=== PATIENT | male | born 1935 | race Two or more races ===

== ENCOUNTER → 2018-06-20 | Outpatient (CLI) | payer OTHER ==
[~2018-06-20] MED LIST: AMLO5TAB10 PO; ASPI81TA50 PO; FISH1CAP PO; HYDR-3164 PO; IOHEXOL 240 MG/ML 50ML VIAL. PO ONE; LISI10TA2 PO; METO-247 PO; MULT-658 PO; NIAC500T PO; SIMV40TA3 PO
--- NOTE | 2018-06-20 14:51 | RAD ---
CT study of the abdomen and pelvis without IV contrast Clinical indications: Prostate cancer. TECHNIQUE: Due to a low GFR, no IV contrast was given. This may decrease the sensitivity to detect organ pathology. GI contrast was administered per mouth. Helical CT scanning of the abdomen and pelvis was performed. PQRS compliance Statement One or more of the following individualized dose reduction techniques were utilized for this study: 1. Automated exposure control 2. Adjustment of the mA and/or kV according to patient size 3. Use of iterative reconstruction technique COMPARISON: No previous CT available. FINDINGS: The liver and spleen are homogeneous in appearance on this noncontrast study. There is a cystic lesion of the anterior body of the pancreas which measures 10-13 Hounsfield units and measures 3.5 cm transverse dimension and 1.9 cm in AP dimension. No dilatation of the main pancreatic duct is seen. There are radiopaque gallstones within the gallbladder. The gallbladder is not distended and no gallbladder wall thickening is seen. No extrahepatic biliary ductal dilatation is seen. Calcified atheromatous disease of the abdominal aorta is seen. No focal aneurysmal dilatation is evident. There is diffuse enlargement of retroperitoneal lymphadenopathy around the aorta and IVC with a mantle-like appearance. There is nodular enlargement of iliac lymph nodes bilaterally as well. Prostate gland is enlarged and indents the floor of the urinary bladder. Prostate gland measures 5.9 cm in transverse dimension and 5.7 in AP dimension. The prostate gland indents the floor of the urinary bladder. Urinary bladder wall is smooth otherwise. Urinary bladder is not abnormally distended. The right seminal vesicle is larger than the left. There is severe hydronephrosis and hydroureter bilaterally. On the right side, the right ureter is distended down to the UVJ. There is soft tissue thickening of distal right ureter. On the left side, there is a prominent stone within the distal left ureter at the UVJ measuring 16 mm. There is moderate fecal retention within the rectum and distal sigmoid colon. Mild fecal retention is seen throughout the rest of the colon. The appendix appears normal. Terminal ileum is unremarkable. No obstructive bowel pattern is evident. No free fluid or free air is evident. No lung base consolidation is evident. Multiple osteoblastic lesions of the pelvic bones bilaterally is seen. Small osteoblastic lesion of the right femoral neck is seen. Multiple osteoblastic lesions of the lumbar spine are seen. IMPRESSION: Enlarged prostate gland and enlarged right seminal vesicle. Extensive pelvic and abdominal lymphadenopathy. Osteoblastic lesions of the spine and pelvis and right femur Constellation of findings are consistent with prostate cancer with metastatic lymphadenopathy and osseous metastatic disease. In addition, there is severe bilateral hydronephrosis and hydroureter. This may be secondary to obstruction of the ureters from the retroperitoneal lymphadenopathy. However, there is also a 16 mm stone within the distal left ureter at the UVJ. Additionally appears be soft tissue thickening of the distal right ureter. Therefore this may be due to ureteral edema or invasion of the distal right ureter from prostate cancer especially since the right seminal vesicle is asymmetrically enlarged. Cholelithiasis. Electronically signed by: Robin Case MD (06/20/2018 2:48 PM) [facility]
--- NOTE | 2018-06-20 14:55 | RAD ---
Whole body bone scan Clinical indications: Prostate cancer. TECHNIQUE: After IV infusion of 25 mCi of technetium 99m MDP, delayed anterior and posterior planar images of the skeleton was performed. FINDINGS: Functioning left kidney is seen. No functioning right kidney is evident. Diffuse lesions are seen involving the scapula and rib cage and pelvic bones bilaterally are multiple lesions of the thoracic and lumbar spine are seen. Lesions of the sternum are seen. 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 There is severe abnormal activity involving the left knee which may be degenerative in nature. There is mild degenerative activity of the right knee. There is abnormal activity involving both AC joints which could be degenerative in nature. IMPRESSION: Diffuse osseous metastatic disease. Nonfunctioning right kidney. Severe hydronephrosis is seen on the CT study performed today. Severe activity is seen involving the left knee. Clinical and radiographic correlation is recommended. Electronically signed by: Robin Case MD (06/20/2018 2:52 PM) [facility]
== END | disposition home or self-care (01) ==
LOC: NM 08:14
PROVIDERS: ATTEND Urology
DX: C61 Malignant neoplasm of prostate (principal); C79.51 Secondary malignant neoplasm of bone; N40.0 Benign prostatic hyperplasia without lower urinary tract symptoms; N13.39 Other hydronephrosis; N13.4 Hydroureter; K80.20 Calculus of gallbladder without cholecystitis without obstruction; R59.0 Localized enlarged lymph nodes; K59.00 Constipation, unspecified
CPT/HCPCS: 74176; 78306; 96374; A9503

== ENCOUNTER 2018-07-10 10:59 | Day surgery (SDC) | payer OTHER ==
[~2018-07-10] VITALS: Ht 162.6 cm; Wt 59.0 kg
[~2018-07-10 10:59] MED LIST changes: -HYDR-3164 PO; +HYDROmorphone 2 MG/ML VIAL IV PRN; -IOHEXOL 240 MG/ML 50ML VIAL. PO ONE; +IV RINGERS,LACTATED 1000ML 1,000 ML IV SCH; +MORPHINE SULFATE 2 MG/ML VIAL. IV PRN; +ONDANSETRON PF 4 MG/2 ML VIAL. IV PRN; +PROCHLORPERAZINE 10 MG/2 ML VIAL. IV PRN; +fentaNYL PF VIAL 100 MCG/2 ML VIAL IV PRN
[2018-07-10] MEDS ORDERED: IOHEXOL 300 MG/ML 100ML VIAL. ONE (11:25)
[2018-07-10] MEDS ORDERED: SEVOFLURANE 61 TO 120 MINUTES. IH ONE ×2 (11:43→13:55)
[2018-07-10] MEDS ORDERED: DEXAMETHASONE SOD PHOS 20 MG/5 ML VIAL. ONE (11:43)
[2018-07-10] MEDS ORDERED: ONDANSETRON PF 4 MG/2 ML VIAL. ONE (11:43)
[2018-07-10] MEDS ORDERED: LIDOCAINE 2% PF 5 ML VIAL. ONE (11:43)
[2018-07-10] MEDS ORDERED: PROPOFOL 20 ML IV ONE (11:43)
[2018-07-10 12:06] LABS: BASO % 0 % (0-3); EOS # 0.1 x10^3/uL (0.0-0.7); EOS % 2 % (0-3); HEMATOCRIT 29.4 % (39.0-53.0); HEMOGLOBIN 9.5 g/dL (13.0-17.5); LYMPH # 1.2 x10^3/uL (1.0-4.8); LYMPH % 24 % (24-48); MEAN CORPUSCULAR HEMOGLOBIN 31 pg (25-35); MEAN CORPUSCULAR HGB CONC 32 g/dL (31-37); MEAN CORPUSCULAR VOLUME 96 fL (79-100); MONO # 0.5 x10^3/uL (0.0-1.1); MONO % 9 % (0-9); NEUT # 3.4 x10^3uL (1.8-7.7); NEUT % 65 % (31-73); PLATELET COUNT 200 x10^3/uL (140-400); RED BLOOD COUNT 3.07 x10^6/uL (4.30-5.70); RED CELL DISTRIBUTION WIDTH 15.1 % (11.5-14.5); WHITE BLOOD COUNT 5.2 x10^3/uL (4.0-11.0)
[2018-07-10 12:16] LABS: CALCIUM 8.8 mg/dL (8.5-10.1); CREATININE 2.7 mg/dL (0.7-1.3); GFR 22.7; POTASSIUM 5.1 mmol/L (3.5-5.1)
[2018-07-10] MEDS ORDERED: GLYCOPYRROLATE 1 MG/5 ML VIAL. ONE (12:52)
[2018-07-10] MEDS ORDERED: ceFAZolin 2GM PREMIX 2 GM/50 ML BAG IV ONE (13:00)
[2018-07-10] MEDS ORDERED: fentaNYL PF VIAL 100 MCG/2 ML VIAL ONE (13:13)
[2018-07-10] MEDS ORDERED: SEVOFLURANE > 120 MINUTES. IH ONE (14:58)
--- NOTE | 2018-07-10 15:31 | PDOC4 ---
OPERATIVE NOTE Date: Date: Jul 10, 2018 Pre-Op Diagnosis: left ureteral stone bilateral hydronephrosis prostate cancer Post-Op Diagnosis: same Procedure Performed: left ureteroscopy, laser of ureter stone bilateral ureteral stent placement Surgeon: Alyse Groves Anesthesia Type: general Blood Loss: 0 Specimans Obtained: left ureter stone Findings: left distal ureter stone - impacted. severe distal and mid ureteral narrowing secondary to advanced prostate cancer. Complications: none Operative Note: see dictation ALYSE GROVES MD Jul 10, 2018 15:31
--- NOTE | 2018-07-10 15:35 | DISCH ---
DISCHARGE INSTRUCTIONS Condition on Discharge Condition on Discharge: Stable Activity After Discharge Activity Instructions for Disc: No restrictions Exercise Instruction after Dis: Walk 10 min, 3 x per day Driving Instructions after Dis: Do not drive today Weight Bearing Status after Di: No restrictions Diet after Discharge Diet after Discharge: Regular Contacting the after DC Call your doctor for: If your condition worsens Follow-Up Follow up with: Dr. Groves office for blood draw 07/14/18 ALYSE GROVES MD Jul 10, 2018 15:35
[2018-07-10] MEDS ORDERED: HYDR-3164 PO (15:37)
--- NOTE | 2018-07-10 16:09 | OP ---
DATE OF SURGERY: 07/10/2018 SURGEON: Alyse Groves MD. DISPATCHER TOW TRUCK: None. PREOPERATIVE DIAGNOSES: 1. Left ureter stone. 2. Bilateral hydronephrosis. 3. Prostate cancer. POSTOPERATIVE DIAGNOSES: 1. Left ureter stone. 2. Bilateral hydronephrosis. 3. Prostate cancer. PROCEDURES PERFORMED: 1. Left ureteroscopy with laser of stone and left ureteral stent placement. 2. Right ureteral stent placement. 3. Right retrograde pyelogram. ANESTHESIA TYPE: General. INDICATIONS: This is an 82-year-old male with advanced prostate cancer found to have renal failure and bilateral hydronephrosis. He is also noted to have a 1.6 cm stone in the distal left ureter. After discussion of risks, benefits, and alternatives, he agreed to the above procedure. Informed consent was obtained. DESCRIPTION OF PROCEDURE: The patient was taken to the operating room and general anesthesia was induced. He was placed in dorsal lithotomy position, sterilely prepped and draped. Timeout was performed. Rigid cystoscope was advanced through the urethra and into the bladder. The urethra and prostate appeared unremarkable. The bladder was mildly trabeculated without other abnormalities. The right ureteral orifice was cannulated with a guidewire, which was then advanced up into the kidney. A ureteral catheter was advanced over the wire and a retrograde pyelogram was performed, which showed severe narrowing of the ureter from approximately the mid ureter down to the bladder and hydronephrosis and proximal right hydroureter. The guidewire was reintroduced and the ureteral catheter was removed. A 6 x 24 cm stent was then advanced over the wire and left in appropriate position with a curl in both ends. Next, the left ureteral orifice was attempted to be cannulated, however, due to a large impacted stone near the ureteral orifice, this was not possible. A rigid ureteroscope was then advanced into the bladder and up to the stone in the distal left ureter. The stone was then fragmented into multiple small fragments. The stone was impacted and the distal ureter was tortuous, which made fragmentation and visualization of the stone very difficult and time consuming. Additional attempts were made to advance the wire into the left ureter and this was eventually able to be done after the impacted stone had been dislodged. A 6 x 24 cm stent was advanced over the wire and left in appropriate position. The remaining stone fragments were withdrawn from the bladder and distal ureter and no stone fragments were noted on fluoroscopy at the end of the procedure. The bladder contents were emptied. The patient was then awakened and taken to the recovery room in stable condition. BLOOD LOSS: None. COMPLICATIONS: None. SPECIMEN: Left ureter stone fragments. MODIFIER 22: Please note, due to the large size of the ureteral stone, the fact that the stone was impacted, and that the distal ureter was very tortuous, the ureteroscopy portion of the surgery took approximately 2 hours, over twice as long as typical for this procedure. ALYSE GROVES MD DR: RHONA/madisyn JOB#: [id number] / [id number]
[2018-07-10 17:00] VITALS: BP 125/56
--- NOTE | 2018-07-14 15:06 | PATHOLOGY ---
[facility] Accession Number: [id number] . 01 Material submitted: . LEFT URETERAL STONE . 02 Diagnosis: Calculi, left ureter, removal: - Calculi/ ureterolithiasis (gross diagnosis only). - Specimen forwarded for stone analysis, results to be reported in an addendum when available. LB/07/11/2018 . 02 Electronically signed: . Conor Irwin MD, Pathologist NPI- [id number] . 01 Gross description: . The specimen is fresh, labeled "Méndez, Aniceto, left ureteral stone", are two irregular fragments of santo to dark brown calculi measuring 1.0 x 0.5 x 0.3 cm in aggregate. Gross only. (SWS; 07/11/2018) SHS/SHS . 02 Pathologist provided ICD-10: N20.1 . 02 CPT . 122991 Specimen Comment: A courtesy copy of this report has been sent to Specimen Comment: [phone], . Specimen Comment: Report sent to / DR PAGE Performed at: 01 [facility] [address], [place] [id number] MD Demetrius Pulido MD Phone: [phone] Performed at: 02 [facility] [address] [place], [place] [id number] MD Conor Irwin MD Phone: [phone]
== END 2018-07-10 17:00 | disposition home or self-care (01) ==
LOC: SURG 10:59
PROVIDERS: ATTEND Urology
DX: N13.2 Hydronephrosis with renal and ureteral calculous obstruction (principal); I25.10 Atherosclerotic heart disease of native coronary artery without angina pectoris; C61 Malignant neoplasm of prostate; I10 Essential (primary) hypertension; E78.00 Pure hypercholesterolemia, unspecified; Z91.09 Other allergy status, other than to drugs and biological substances; Z98.890 Other specified postprocedural states; Z79.899 Other long term (current) drug therapy; Z95.1 Presence of aortocoronary bypass graft; Z72.89 Other problems related to lifestyle
CPT/HCPCS: 36415; 52332; 52356; 74420; 80048; 85025; A7015; C1769; C2617; J0696; J1100; J2001; J2405; J2704; J3010; J7120; Q9967; 82365; J3490